=== PATIENT | female | born 1995 | race Caucasian/White ===

== ENCOUNTER 2016-10-30 07:04 | Emergency (ER) | payer MEDICAID ==
--- NOTE | 2016-10-30 07:48 | EDM.PDOC ---
[id number] 4d STOMACH PAIN VOMITING Time Seen by Provider: 10/30/16 07:41 Source: Reports: Patient History Limitations: Reports: No limitations - History of Present Illness INITIAL COMMENTS - FREE TEXT/NARRATIVE: 21-year-old female developed upper abdominal pain overnight and arrived this morning very uncomfortable. Pain started slowly at around 7 PM but by midnight she had significant discomfort and was vomiting. She was up all night with pain and vomiting. She feels better when she lies down. Chills but no fever, no diarrhea. She has no history of abdominal surgeries. She just finished a normal menstrual cycle. No shortness of breath, chest pain, cold symptoms. Pain is localized to the upper abdomen, nonradiating. No previous pain similar to this one. No exposure to illness she knows of. Location: other (Across the upper abdomen somewhat worse on the right) Quality: Reports: ache, cramping Severity: moderate Improves with: Reports: lying down Worsens with: Reports: other (Seems worse when up and moving, walking) Associated Symptoms (-Female): Reports: nausea/vomiting. Denies: chest pain, back pain, shoulder pain, diarrhea - Related Data Allergies/ADRs: Allergies Allergy/AdvReac Type Severity Reaction Status Date / Time No Known Allergies Allergy Verified 12/10/15 04:05 Past Medical History - Past Health History Medical/Surgical History: Denies Medical/Surgical History Social & Family History - Family History : Reports: Renal calculus Musculoskeletal: Reports: Arthritis Oncologic: Reports: Lung Other Oncologic Family History: paternal granmother - Tobacco Use Smoking Status *Q: Never Smoker - Recreational Drug Use Recreational Drug Use: No ED ROS GENERAL - Review of Systems Review Of Systems: See Below Constitutional: Reports: chills, malaise. Denies: fever, weakness HEENT: Reports: No symptoms Respiratory: Reports: No Symptoms Cardiovascular: Reports: No symptoms GI/Abdominal: Reports: Abdominal pain, Nausea, Vomiting. Denies: Diarrhea : Reports: no symptoms Skin: Reports: no symptoms Neurological: Reports: No Symptoms. Denies: Headache Psychiatric: Reports: No symptoms ED EXAM, GI/ABD - Physical Exam Exam: See Below Exam Limited By: No limitations General Appearance: alert, mild distress (Looks fairly uncomfortable) Eyes: bilateral: normal appearance (No jaundice, good hydration) Respiratory/Chest: no respiratory distress, lungs clear Cardiovascular: regular rate, rhythm GI/Abdominal: soft, tenderness (Patient has tenderness to palpation in the right upper quadrant, epigastric area and across the lower abdomen but no focal tenderness or guarding, no rebound) Neurological: alert, oriented Psychiatric: normal affect, normal mood Skin Exam: Warm, Dry Course - Vital Signs Last Recorded V/S: Last Vital Signs Temp 98.3 F 10/30/16 07:35 Pulse 78 10/30/16 07:35 Resp 15 10/30/16 07:35 BP 128/87 10/30/16 07:35 Pulse Ox 97 10/30/16 07:35 - Orders/Labs/Meds Labs: Laboratory Tests 10/30/16 10/30/16 Range/Units 07:58 07:58 WBC 9.8 (4.5-11.0) K/uL RBC 4.70 (3.30-5.50) M/uL Hgb 14.3 D (12.0-15.0) g/dL Hct 41.8 (36.0-48.0) % MCV 89 (80-98) fL MCH 30 (27-31) pg MCHC 34 (32-36) % Plt Count 209 (150-400) K/uL Neut % (Auto) 87 H (36-66) % Lymph % (Auto) 5 L (24-44) % Nobles % (Auto) 7 H (2-6) % Eos % (Auto) 1 L (2-4) % Baso % (Auto) 0 (0-1) % Sodium 142 (140-148) mmol/L Potassium 4.1 (3.6-5.2) mmol/L Chloride 106 (100-108) mmol/L Carbon Dioxide 29 (21-32) mmol/L Anion Gap 7.3 (5.0-14.0) mmol/L BUN 16 (7-18) mg/dL Creatinine 0.7 (0.6-1.0) mg/dL Est Cr Clr Drug Dosing 110.70 mL/min Estimated GFR (MDRD) > 60 (>60) Glucose 93 (74-106) mg/dL Calcium 8.6 (8.5-10.1) mg/dL Total Bilirubin 0.6 (0.2-1.0) mg/dL AST 12 L (15-37) U/L ALT 19 (12-78) U/L Alkaline Phosphatase 59 (46-116) U/L Total Protein 7.5 (6.4-8.2) g/dL Albumin 4.0 (3.4-5.0) g/dL Globulin 3.5 (2.3-3.5) g/dL Albumin/Globulin Ratio 1.1 L (1.2-2.2) Amylase 68 (25-115) U/L Lipase 77 (73-393) U/L Meds: Medications Discontinued Medications Generic Name Dose Route Start Last Admin Trade Name Vy PRN Reason Stop Dose Admin Hydromorphone HCl 0.5 mg 10/30/16 07:49 10/30/16 08:16 Dilaudid IVPUSH 10/30/16 07:50 0.5 mg ONETIME ONE Administration Sodium Chloride 1,000 mls @ 1,000 mls/hr 10/30/16 08:00 10/30/16 08:16 Normal Saline IV 1,000 mls/hr ASDIRECTED RUPAL Administration Ondansetron HCl 4 mg 10/30/16 07:49 10/30/16 08:15 Zofran IVPUSH 10/30/16 07:50 4 mg ONETIME ONE Administration - Re-Assessments/Exams Free Text/Narrative Re-Assessment/Exam: 10/30/16 07:53 Patient will be given 1 L of normal saline, 0.5 of Dilaudid and 4 mg of Zofran IV. This pain distribution fits more of a generalized enteritis than a focal infection of the appendix or gallbladder but further investigation will depend on labs and response to treatment. A UA and urine will also be obtained. 10/30/16 08:35 All labs are normal. Patient responded well to the IV medications. UA and urine was canceled. She just finished her menstrual cycle and it appears no imaging would be necessary. 10/30/16 08:54 Patient continued to feel better and will be discharged with 5 additional doses of sublingual Zofran. She can return if worsening and she will increase her diet as tolerated. Departure - Departure Time of Disposition: 09:25 Disposition: Home, Self-Care 01 Condition: good Clinical Impression: Gastroenteritis Vomiting Qualifiers: Vomiting type: unspecified Vomiting Intractability: non-intractable Nausea presence: with nausea Qualified Code(s): R11.2 - Nausea with vomiting, unspecified Instructions: Viral Gastroenteritis, Adult, [id number], Nausea and Vomiting, Adult, [id number] Referrals: Tracee Connor CNM [Primary Care Provider] - Forms: ED Department Discharge Care Plan Goals: Rest today, increase activity and diet as tolerated concentrating on fluids today. Use Zofran as prescribed if nausea is persistent especially if vomiting. Return any time if worsening or concerns.
[2016-10-30] MEDS ORDERED: HYDROmorphone 0.5 MG/0.5 ML Syringe IVPUSH ONE (07:49)
[2016-10-30] MEDS ORDERED: Ondansetron 4 MG/2 ML SDV IVPUSH ONE (07:49)
[2016-10-30] MEDS ORDERED: Sodium Chloride 0.9% 1,000 ML IV SCH (08:00)
[2016-10-30 08:17] VITALS: BP 128/87
== END 2016-10-30 09:21 | disposition home or self-care (01) ==
LOC: JP.ED 07:04
DX: K52.9 Noninfective gastroenteritis and colitis, unspecified (principal); R11.2 Nausea with vomiting, unspecified
CPT/HCPCS: 36415; 80053; 82150; 83690; 85025; 96361; 96374; 96375; 99284; J1170; J2405; J7040

== ENCOUNTER 2019-02-16 20:07 | Emergency (ER) | payer MEDICAID ==
[2019-02-16 20:39] VITALS: BP 122/74; PULSE 97
[2019-02-16] MEDS ORDERED: Sulfamethoxazole/Trimethoprim 800-160 MG Tab PO ONE (20:56)
--- NOTE | 2019-02-16 21:05 | EDM.PDOC ---
ED HPI GENERAL MEDICAL PROBLEM - General Chief Complaint: [employer] Problem Stated Complaint: FEVER, BLEEDING, PAIN IN STOMACH Time Seen by Provider: 02/16/19 20:23 Source of Information: Reports: Patient History Limitations: Reports: No Limitations - History of Present Illness INITIAL COMMENTS - FREE TEXT/NARRATIVE: 23 yo female presents to the ER with suprapubic pain. pain has been worsening over the last 2 days and fever started this evening. LMP was last week and was normal. IUD in place Treatments STORE LEAD: Reports: Other (see below) Other Treatments STORE LEAD: urine test. 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: Social & Family History - Family History : Reports: Renal Calculus Musculoskeletal: Reports: Arthritis Oncologic: Reports: Lung Other Oncologic Family History: paternal granmother - Tobacco Use Smoking Status *Q: Never Smoker Second Hand Smoke Exposure: No - Caffeine Use Caffeine Use: Reports: None - Recreational Drug Use Recreational Drug Use: No ED ROS GENERAL - Review of Systems Review Of Systems: See Below Constitutional: Reports: Fever, Chills, Malaise, Fatigue Respiratory: Denies: Shortness of Breath, Wheezing Cardiovascular: Denies: Chest Pain GI/Abdominal: Reports: Abdominal Pain ED EXAM, GI/ABD - Physical Exam Exam: See Below Exam Limited By: No Limitations General Appearance: Alert, WD/WN, No Apparent Distress Head: Atraumatic, Normocephalic Respiratory/Chest: No Respiratory Distress, Lungs Clear, Normal Breath Sounds, No Accessory Muscle Use, Chest Non-Tender. No: Crackles, Rhonchi, Wheezing Cardiovascular: Regular Rate, Rhythm, No Murmur GI/Abdominal Exam: Normal Bowel Sounds, Soft, No Distention, Tender (suprapubic) Back Exam: Normal Inspection, Full Range of Motion. No: CVA Tenderness (R), CVA Tenderness (L) Psychiatric: Normal Affect, Normal Mood Skin Exam: Warm, Dry, Intact, Normal Color Course - Vital Signs Last Recorded V/S: Last Vital Signs Temp 37.2 C 02/16/19 20:37 Pulse 97 02/16/19 20:37 Resp 14 02/16/19 20:37 BP 122/74 02/16/19 20:37 Pulse Ox 98 02/16/19 20:37 - Orders/Labs/Meds Labs: Laboratory Tests 02/16/19 Range/Units 20:24 Urine Color Yellow Urine Appearance Cloudy Urine pH 8.0 (4.5-8.0) Ur Specific Benton 1.015 (1.008-1.030) Urine Protein Negative (NEGATIVE) mg/dL Urine Glucose (UA) Normal (NEGATIVE) mg/dL Urine Ketones Negative (NEGATIVE) mg/dL Urine Occult Blood Large (NEGATIVE) Urine Nitrite Negative (NEGATIVE) Urine Bilirubin Negative (NEGATIVE) Urine Urobilinogen Normal (NORMAL) mg/dL Ur Leukocyte Esterase Moderate (NEGATIVE) Urine RBC 30-40 H (0-5) Urine WBC 5-10 H (0-5) Ur Epithelial Cells Moderate Amorphous Sediment Not seen Urine Bacteria Moderate Urine Mucus Not seen Meds: Medications Discontinued Medications Generic Name Dose Route Start Last Admin Trade Name Freq PRN Reason Stop Dose Admin Trimethoprim/Sulfamethoxazole 1 tab 02/16/19 20:56 Septra Ds PO 02/16/19 20:57 ONETIME ONE Departure - Departure Time of Disposition: 21:04 Disposition: Home, Self-Care 01 Condition: Good Clinical Impression: UTI (urinary tract infection) Qualifiers: Urinary tract infection type: acute cystitis Hematuria presence: with hematuria Qualified Code(s): N30.01 - Acute cystitis with hematuria - Discharge Information *PRESCRIPTION DRUG MONITORING PROGRAM REVIEWED*: Not Applicable *COPY OF PRESCRIPTION DRUG MONITORING REPORT IN PATIENT KEYA: Not Applicable Instructions: Urinary Tract Infection, Adult, [id number] Referrals: PCP,None [Primary Care Provider] - Additional Instructions: Bactrim DS 1 tablet twice daily for 3 days increase fluid intake with goal of 1.5 liters per day if no improvement by Monday follow-up with your primary care doctor
== END 2019-02-16 21:22 | disposition home or self-care (01) ==
LOC: JP.ED 20:07
DX: N30.01 Acute cystitis with hematuria (principal)
CPT/HCPCS: 81001; 87086; 99283; A9270

== ENCOUNTER 2023-10-05 12:19 | Emergency (ER) | payer OTHER, BC ==
[2023-10-05 12:33] VITALS: BP 111/74; PULSE 72
[2023-10-05] MEDS: Diphtheria/Tetanus Toxoids,Adult (Td) 0.5 ML SDV IM ONE (14:20)
== END 2023-10-05 14:45 | disposition home or self-care (01) ==
LOC: JP.ED 12:19
DX: S80.212A Abrasion, left knee, initial encounter (principal); W19.XXXA Unspecified fall, initial encounter
CPT/HCPCS: 90471; 90714; 99282; 99282-25